=== PATIENT | male | born 1965 | race Caucasian/White ===

== ENCOUNTER 2024-07-10 06:40 | Emergency (ER) | payer OTHER ==
[~2024-07-10] VITALS: Ht 172.7 cm; Wt 77.1 kg
[2024-07-10] MEDS ORDERED: Acetaminophen/Oxycodone 5 MG/325 MG TABLET PO ONE (07:00)
[2024-07-10] MEDS ORDERED: MELOXICAM15 MG PO (08:22)
== END 2024-07-10 08:39 | disposition home or self-care (01) ==
LOC: ED 06:40
DX: S43.401A Unspecified sprain of right shoulder joint, initial encounter (principal); W00.0XXA Fall on same level due to ice and snow, initial encounter; Y93.89 Activity, other specified; Y92.89 Other specified places as the place of occurrence of the external cause; Y99.0 Civilian activity done for income or pay